=== PATIENT | female | born 2000 | race Caucasian/White ===

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

== ENCOUNTER 2018-09-25 10:37 | Inpatient (IN) | payer OTHER ==
[~2018-09-25] VITALS: Ht 167.6 cm; Wt 127.3 kg
--- NOTE | 2018-09-25 11:45 | NUR ---
PT ADMITTED TO ROOM 2222 DIRECT ADMIT. ALERT AND ORIENTED, NO ACUTE DISTRESS NOTED. FAMILY PRESENT. ABLE TO ANSWER QUESTIONS APPROPRIATELY. DENIES PAIN AT THIS TIME. ORIENTED TO CALL LIGHT AND BED CONTROLS AND ROOM. DENIES QUESTIONS AT THIS TIME. DENIES FURTHER NEEDS. ENCOURAGED TO CALL WITH NEEDS. WILL CONTINUE TO MONITOR
[2018-09-25] MEDS ORDERED: ALBUTEROL2.5 MG/3 M INH (11:59)
[2018-09-25] MEDS ORDERED: ZITHROMAX250 MG PO (12:00)
[2018-09-25] MEDS ORDERED: SINGULAIR10 MG PO (12:01)
[2018-09-25] MEDS ORDERED: OMNICEF300 MG PO (12:01)
[2018-09-25] MEDS ORDERED: CELEXA20 MG PO (12:02)
[2018-09-25] MEDS ORDERED: SYMBICORT 16010.2 GM INH (12:02)
[2018-09-25 12:11] LABS: ALBUMIN 3.9 g/dL (3.4-5.0); ALKALINE PHOSPHATASE 74 U/L (46-116); ALT (SGPT) 20 U/L (10-68); BILIRUBIN - TOTAL 0.38 mg/dL (0.2-1.3); CALC OSMOLALITY 279 mosm/kg (275-300); CALCIUM 8.8 mg/dL (8.5-10.1); CARBON DIOXIDE 27.1 mmol/L (21.0-32.0); CHLORIDE - SERUM 102 mmol/L (98-107); CREATININE - SERUM 0.8 mg/dL (0.6-1.3); GLUCOSE 81 mg/dL (74-106); POTASSIUM - SERUM 3.5 mmol/L (3.5-5.1); PROTEIN - SERUM 7.7 g/dL (6.4-8.2); SODIUM 141 mmol/L (136-145); UREA NITROGEN 13 mg/dL (7-18); eGFR NON AFRICAN AMERICAN > 90 mL/min (90-120)
[2018-09-25 12:14] LABS: BASOPHILS 0.1 % (0-2); EOSINOPHILS 0.8 % (0-7); HEMATOCRIT 36.2 % (36.0-48.0); HEMOGLOBIN 11.8 g/dL (12-16); IMMATURE GRANULOCYTES 0.4 % (0-5); LYMPHOCYTES 25.3 % (15-50); MCH 25.3 pg (26.0-34.0); MCHC 32.6 g/dL (31.0-37.0); MCV 77.5 fL (80.0-100.0); MEAN PLATELET VOLUME 10.2 fL (7.4-10.4); MONOCYTES 10.1 % (2-11); NEUTROPHILS 63.3 % (40-80); PLATELET COUNT 474 10x3/uL (130-400); RBC 4.67 10x6/uL (4.00-5.40); RDW 12.8 % (11.5-14.5); WBC 15.8 10x3/uL (4.8-10.8)
[2018-09-25 13:01] VITALS: BP 118/71
--- NOTE | 2018-09-25 14:31 | NUR ---
22 gauge iv started in left forearm x 1 stick, positive blood return flushed without difficulty, redness or swelling. secured with tegaderm and NS infusing via pump at 100ml/hr without difficulty.
[2018-09-25 16:47] VITALS: BP 129/72
[2018-09-25 18:28] VITALS: BP 118/71; Ht 167.6 cm; Wt 127.3 kg
--- NOTE | 2018-09-25 19:00 | NUR ---
BEDSIDE REPORT RECEIVED AND CARE OF PT ASSUMED. PT LYING IN HIGH MAHARAJ'S POSITION WATCHING TV. IV IN LEFT FA PATENT WITH NS INFUSING AT 100 ML / HR. LUNGS CLEAR AT THIS ASSESSMENT. WILL MONITOR FOR NEEDS.
--- NOTE | 2018-09-25 19:39 | NUR ---
I have reviewed this patient and I concur with the Shift Assessment completed by the Licensed Practical Nurse today this shift.
[2018-09-25 20:00] VITALS: BP 112/78
--- NOTE | 2018-09-25 20:30 | NUR ---
HS MEDICATIONS GIVEN. WILL CONTINUE TO MONITOR FOR NEEDS.
[2018-09-25 22:00] LABS: APPEARANCE CLEAR (CLEAR); BILIRUBIN NEGATIVE (NEGATIVE); COLOR YELLOW (YELLOW); GLUCOSE NEGATIVE (NEGATIVE); KETONE NEGATIVE (NEGATIVE); NITRITE NEGATIVE (NEGATIVE); PROTEIN NEGATIVE (NEGATIVE); UROBILINOGEN NORMAL (NORMAL)
--- NOTE | 2018-09-25 22:20 | NUR ---
FLU SWAB PERFORMED PER ORDER AND DELIVERED TO LAB.
--- NOTE | 2018-09-25 23:00 | NUR ---
FLU NEGATIVE PER LAB.
[2018-09-26] VITALS: BP 117/83
[2018-09-26 04:00] VITALS: BP 124/69
[2018-09-26 04:58] LABS: ALBUMIN 3.4 g/dL (3.4-5.0); ALKALINE PHOSPHATASE 75 U/L (46-116); ALT (SGPT) 16 U/L (10-68); BILIRUBIN - TOTAL 0.28 mg/dL (0.2-1.3); CALCIUM 8.7 mg/dL (8.5-10.1); CARBON DIOXIDE 22.4 mmol/L (21.0-32.0); CHLORIDE - SERUM 104 mmol/L (98-107); CREATININE - SERUM 0.7 mg/dL (0.6-1.3); PROTEIN - SERUM 7.3 g/dL (6.4-8.2); SODIUM 140 mmol/L (136-145); UREA NITROGEN 10 mg/dL (7-18); eGFR NON AFRICAN AMERICAN > 90 mL/min (90-120)
[2018-09-26 04:59] LABS: BASOPHILS 0.1 % (0-2); EOSINOPHILS 0 % (0-7); HEMATOCRIT 34.9 % (36.0-48.0); HEMOGLOBIN 11.3 g/dL (12-16); IMMATURE GRANULOCYTES 0.6 % (0-5); LYMPHOCYTES 11.1 % (15-50); MCH 24.7 pg (26.0-34.0); MCHC 32.4 g/dL (31.0-37.0); MCV 76.4 fL (80.0-100.0); MEAN PLATELET VOLUME 10.1 fL (7.4-10.4); MONOCYTES 2.5 % (2-11); NEUTROPHILS 85.7 % (40-80); PLATELET COUNT 458 10x3/uL (130-400); RBC 4.57 10x6/uL (4.00-5.40); RDW 12.6 % (11.5-14.5); WBC 13.8 10x3/uL (4.8-10.8)
[2018-09-26 05:02] LABS: CALC OSMOLALITY 280 mosm/kg (275-300); GLUCOSE 144 mg/dL (74-106); POTASSIUM - SERUM 4.3 mmol/L (3.5-5.1)
--- NOTE | 2018-09-26 08:00 | NUR ---
PTLYING IN BED ON LEFT SIDE, STATES HAD A PRETTY GOOD IGHT LAST NIGHT AND FEELS BETTER, LUNG SOUNDS CLEAR THIS MORNING, NO S/S OF DISTRESS, NO NEEDS VOICED, CONTINUE WITH PLAN OF CARE
[2018-09-26 08:47] VITALS: BP 144/83
[2018-09-26 12:59] VITALS: BP 118/73
[2018-09-26 16:00] VITALS: BP 126/75
--- NOTE | 2018-09-26 16:33 | MORECARE ---
CASE MANAGEMENT DISCHARGE SUMMARY PATIENT: MC MITCHELL UNIT: [id number] ADM DATE: 09/25/18 AGE: 18 : [birth year] SEX: F ROOM/BED: D.2222 AUTHOR: ISIDRO MARIEE PHYSICIAN: REFERRING PHYSICIAN: LITTLE EPPS DO DATE OF SERVICE: 09/26/18 Discharge Plan Patient Name: MC MITCHELL [facility] [facility] 2000 Planned Disposition: Home Anticipated Discharge Date: Discharge Date: Expected LOS: Initial Reviewer: [email or web address] Initial Review Date: 09/26/2018 Generated: 09/26/18 5:33 pm Patient Name: MC MITCHELL Page [id number] at 1633 All edits/amendments must be made on the electronic document DICTATION DATE: 09/26/18 163 NUCLEAR MEDICINE TECHNICIAN: BONNIE 09/26/18 1633 RPT#: [id number] DC DATE: STATUS: ADM IN [facility] [address] [place] [address] END OF REPORT
--- NOTE | 2018-09-26 16:40 | MORECARE ---
CASE MANAGEMENT DISCHARGE SUMMARY PATIENT: MC MITCHELL UNIT: [id number] ADM DATE: 09/25/18 AGE: 18 : 98 SEX: F ROOM/BED: D.2222 AUTHOR: ISIDRO MARIEE PHYSICIAN: REFERRING PHYSICIAN: LITTLE EPPS DO DATE OF SERVICE: 09/26/18 Discharge Plan Patient Name: MC MITCHELL Facility: [facility]:[place] : 2000 Planned Disposition: Home Anticipated Discharge Date: Discharge Date: Expected LOS: Initial Reviewer: [email or web address] Initial Review Date: 09/26/2018 Generated: 09/26/18 5:40 pm Comments DCP- Discharge Planning Updated by [email or web address]: Candace Simon on 09/26/18 3:[address] Patient Name: MC MITCHELL Admission Status: Elective Accout number: [id number] Admission Date: 09-25-2018 : 2000 Admission Diagnosis:SHORTNESS OF BREATH Attending: LITTLE EPPS Current LOS: 1 Anticipated DC Date: Planned Disposition: Home Primary Insurance: [facility] PPO Discharge Planning Comments: CM MET WITH PATIENT ABOUT DC PLANNING. HAS NEBULIZER AT HOME. SHE IS IN COLLEGE AND LIVES IN [place], STAYS AT HER PARENTS HOUSE WHEN NOT [place]. DENIES ANY NEEDS. STATES HER MOM IS A NURSE. CM WILL FOLLOW AND ASSIST NEEDED. Integration Software Developer: Candace Simon DCPIA - Discharge Planning Initial Assessment Updated by [email or web address]: Candace Simon on 09/26/18 4:35 pm * Is the patient Alert and Oriented? Yes * PCP [facility] * Pharmacy [facility] [address] * Preadmission Environment Home with Family * ADLs Independent * Equipment Nebulizer * List name and contact numbers for known caregivers / representatives who currently or will assist patient after discharge: MOTHER PAUL, * Community resources currently utilized None * Additional services required to return to the preadmission environment? No * Can the patient safely return to the preadmission environment? Yes * Has this patient been hospitalized within the prior 30 days at any hospital? No Last DP export: 09/26/18 3:33 pm Patient Name: MC MITCHELL Page [id number] at 1640 All edits/amendments must be made on the electronic document DICTATION DATE: 09/26/18 1640 CLINICAL INFORMATICIST: BONNIE 09/26/18 1640 RPT#: [id number] DC DATE: STATUS: ADM IN [facility] [address] [place] [address] END OF REPORT
--- NOTE | 2018-09-26 17:09 | NUR ---
I have reviewed this patient and I concur with the Shift Assessment completed by the Licensed Practical Nurse today this shift.
--- NOTE | 2018-09-26 19:15 | NUR ---
RECEIVED REPORT, ASSUMED CARE, A&O, MOTHER AT BEDSIDE, IV TO LFA BURNING WHEN FLUSHED, 20G RESTARTED TO RAC, CALL LIGHT IN REACH, BED LOWEST POSITION, WILL CONTINUE TO MONITOR
[2018-09-26 19:46] VITALS: BP 108/60
[2018-09-27] VITALS: BP 128/89
--- NOTE | 2018-09-27 02:41 | NUR ---
I have reviewed this patient and I concur with the Shift Assessment completed by the Licensed Practical Nurse today this shift.
[2018-09-27 04:00] VITALS: BP 123/73
[2018-09-27 06:28] LABS: HEMATOCRIT 34.4 % (36.0-48.0); HEMOGLOBIN 11.1 g/dL (12-16); MCH 24.8 pg (26.0-34.0); MCHC 32.3 g/dL (31.0-37.0); MEAN PLATELET VOLUME 10.6 fL (7.4-10.4); PLATELET COUNT 499 10x3/uL (130-400); RBC 4.47 10x6/uL (4.00-5.40); RDW 13.1 % (11.5-14.5)
[2018-09-27 06:38] LABS: ALBUMIN 3.3 g/dL (3.4-5.0); ALKALINE PHOSPHATASE 63 U/L (46-116); ALT (SGPT) 17 U/L (10-68); BILIRUBIN - TOTAL 0.22 mg/dL (0.2-1.3); CALCIUM 8.4 mg/dL (8.5-10.1); CARBON DIOXIDE 24.7 mmol/L (21.0-32.0); CHLORIDE - SERUM 105 mmol/L (98-107); CREATININE - SERUM 0.7 mg/dL (0.6-1.3); GLUCOSE 125 mg/dL (74-106); PROTEIN - SERUM 6.8 g/dL (6.4-8.2); SODIUM 141 mmol/L (136-145); eGFR NON AFRICAN AMERICAN > 90 mL/min (90-120)
[2018-09-27 06:43] LABS: CALC OSMOLALITY 281 mosm/kg (275-300); UREA NITROGEN 13 mg/dL (7-18)
[2018-09-27 08:48] LABS: LYMPHOCYTES 3 % (15-50); MONOCYTES 5 % (2-11); NEUTROPHILS 90 % (40-80); PLATELET ESTIMATE INCREASED
[2018-09-27 08:50] LABS: SMUDGE CELLS OCC
[2018-09-27 10:59] VITALS: BP 113/74
[2018-09-27] MEDS ORDERED: TESSALON PERLE100 MG PO (11:41)
[2018-09-27] MEDS ORDERED: FLUTICASONE PRO16 GM NASAL (11:42)
[2018-09-27] MEDS ORDERED: PREDNISONE10 MG PO ×2 (11:42→11:48)
[2018-09-27] MEDS ORDERED: MUCINEX600 MG PO (11:42)
[2018-09-27] MEDS ORDERED: LEVAQUIN750 MG PO (11:46)
[2018-09-27 13:40] VITALS: BP 146/76
== END 2018-09-27 15:15 | disposition home or self-care (01) | DRG 202 ==
LOC: D.SDCHOLD 10:37 → D.MS 10:37
PROVIDERS: Emergency Medicine; ADMIT Family Medicine; ATTEND Family Medicine
DX: J45.901 Unspecified asthma with (acute) exacerbation (principal); J18.9 Pneumonia, unspecified organism; E66.9 Obesity, unspecified